=== PATIENT | male | born 1975 | race Hispanic/Latino ===

== ENCOUNTER 2020-06-21 10:41 | Emergency (ER) | payer BC ==
[~2020-06-21] VITALS: Ht 175.3 cm; Wt 113.4 kg
[2020-06-21] MEDS ORDERED: METRONIDAZOLE500 MG PO ×3 (11:27→11:31)
[2020-06-21] MEDS ORDERED: BACTRIM DS TAB1 EACH PO (11:29)
--- OUTSIDE RECORDS SUMMARY | 2020-06-21 11:54 | XMS REPORT | Continuity of Care Document ---
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 No Longer Active 02/17/2016 [facility] 200 ML Ciprofloxacin 2 MG/ML Injection Notes: Do not refrigerate No Longer Active 02/17/2016 [facility] D5LR 1,000 mL 1,000 mL, Rate: 30 ml/hr, Infuse over: 33.3 hr, Route: IV, Dosing Weight 100.455 kg, Total Volume: 1,000, Start date: 02/16/16 19:54:00 CDT, Stop date: 03/17/16 19:53:00 CDT No Longer Active 02/17/2016 [facility] Zofran Notes: (Same as: Zofran ) MEDICATION WASTE Product Size: 4 mg Product Wasted: ___ mg No Longer Active 02/17/2016 [facility] Morphine Notes: (Same as:MORPh ine Sulfate) No Longer Active 02/17/2016 [facility] Morphine Notes: (Same as:MORPh ine Sulfate) No Longer Active 02/17/2016 [facility] Allergies, Adverse Reactions, Alerts No Known Medication Allergies Immunizations No Data Provided for This Section Results Order Name Results Value Reference Range Date Interpretation Comments Source CHEM PANEL A/G Ratio 1.0 0.7 - 1.6 02/19/2016 [facility] CHEM PANEL AGAP 14.0 10.0 - 20.0 02/19/2016 [facility] CHEM PANEL B/C Ratio 13 6 - 25 02/19/2016 [facility] CHEM PANEL Globulin 3.4 2.0 - 4.0 02/19/2016 [facility] CHEM PANEL eGFR 108 02/19/2016 Result Comment: The eGFR is calculated using the CKD-EPI formula. In most young, healthy individuals the eGFR will be >90 mL/min/1.73m2. The eGFR declines with age. An eGFR of 60-89 may be normal in some populations, particularly the elderly, for whom the CKD-EPI formula has not been extensively validated. Use of the eGFR is not recommended in the following populations:

Individuals with unstable creatinine concentrations, including patients and those with serious co-morbid conditions.

Patients with extremes in muscle mass or diet.

The data above are obtained from the National Kidney Disease Education Program (NKDEP) which additionally recommends that when the eGFR is used in patients with extremes of body mass index for purposes of drug dosing, the eGFR should be multiplied by the estimated BMI. [facility] CHEM PANEL Bili Total 0.8 0.2 - 1.3 02/19/2016 [facility] CHEM PANEL AST 12 0 - 37 02/19/2016 [facility] CHEM PANEL Alk Phos 70 39 - 136 02/19/2016 [facility] CHEM PANEL Calcium Lvl 9.0 8.5 - 10.5 02/19/2016 [facility] CHEM PANEL Total Protein 6.9 6.4 - 8.4 02/19/2016 [facility] CHEM PANEL Albumin Lvl 3.5 3.5 - 5.0 02/19/2016 [facility] CHEM PANEL ALT 30 0 - 65 02/19/2016 [facility] CHEM PANEL Glucose Lvl 87 70 - 99 02/19/2016 [facility] CHEM PANEL Creatinine Lvl 0.83 0.50 - 1.40 02/19/2016 [facility] CHEM PANEL BUN 11 7 - 22 02/19/2016 [facility] CHEM PANEL Chloride Lvl 104 95 - 109 02/19/2016 [facility] CHEM PANEL Potassium Lvl 4.0 3.5 - 5.1 02/19/2016 [facility] CHEM PANEL Sodium Lvl 138 135 - 145 02/19/2016 [facility] CHEM PANEL CO2 24 24 - 32 02/19/2016 [facility] HEMATOLOGY RDW 13.1 11.5 - 14.5 02/19/2016 [facility] HEMATOLOGY MCV 95.8 80.0 - 94.0 02/19/2016 [facility] HEMATOLOGY MCH 31.8 27.0 - 31.0 02/19/2016 [facility] HEMATOLOGY MCHC 33.2 32.0 - 36.0 02/19/2016 [facility] HEMATOLOGY Hgb 15.0 14.0 - 18.0 02/19/2016 [facility] HEMATOLOGY Hct 45.1 42.0 - 54.0 02/19/2016 [facility] HEMATOLOGY WBC 11.0 3.7 - 10.4 02/19/2016 [facility] HEMATOLOGY RBC 4.71 4.70 - 6.10 02/19/2016 [facility] HEMATOLOGY MPV 9.5 7.4 - 10.4 02/19/2016 [facility] HEMATOLOGY Platelet 228 133 - 450 02/19/2016 [facility] HEMATOLOGY Basophils # 0.1 0.0 - 0.2 02/19/2016 [facility] HEMATOLOGY Eosinophils # 0.3 0.0 - 0.5 02/19/2016 [facility] HEMATOLOGY Lymphocytes # 2.1 1.0 - 5.5 02/19/2016 [facility] HEMATOLOGY Monocytes # 1.3 0.0 - 0.8 02/19/2016 [facility] HEMATOLOGY Lymphocytes 19.1 20.0 - 40.0 02/19/2016 [facility] HEMATOLOGY Monocytes 12.2 2.0 - 12.0 02/19/2016 [facility] HEMATOLOGY Segs 64.9 45.0 - 75.0 02/19/2016 [facility] HEMATOLOGY Segs-Bands # 7.1 1.5 - 8.1 02/19/2016 [facility] HEMATOLOGY Eosinophils 2.7 0.0 - 4.0 02/19/2016 [facility] HEMATOLOGY Basophils 1.1 0.0 - 1.0 02/19/2016 [facility] CHEM PANEL A/G Ratio 1.0 0.7 - 1.6 02/18/2016 [facility] CHEM PANEL Globulin 3.3 2.0 - 4.0 02/18/2016 [facility] CHEM PANEL AGAP 13.7 10.0 - 20.0 02/18/2016 [facility] CHEM PANEL B/C Ratio 11 6 - 25 02/18/2016 [facility] CHEM PANEL Alk Phos 69 39 - 136 02/18/2016 [facility] CHEM PANEL eGFR 105 02/18/2016 Result Comment: The eGFR is calculated using the CKD-EPI formula. In most young, healthy individuals the eGFR will be >90 mL/min/1.73m2. The eGFR declines with age. An eGFR of 60-89 may be normal in some populations, particularly the elderly, for whom the CKD-EPI formula has not been extensively validated. Use of the eGFR is not recommended in the following populations:

Individuals with unstable creatinine concentrations, including patients and those with serious co-morbid conditions.

Patients with extremes in muscle mass or diet.

The data above are obtained from the National Kidney Disease Education Program (NKDEP) which additionally recommends that when the eGFR is used in patients with extremes of body mass index for purposes of drug dosing, the eGFR should be multiplied by the estimated BMI. [facility] CHEM PANEL Bili Total 1.4 0.2 - 1.3 02/18/2016 [facility] CHEM PANEL ALT 28 0 - 65 02/18/2016 [facility] CHEM PANEL AST 13 0 - 37 02/18/2016 [facility] CHEM PANEL Total Protein 6.6 6.4 - 8.4 02/18/2016 [facility] CHEM PANEL Albumin Lvl 3.3 3.5 - 5.0 02/18/2016 [facility] CHEM PANEL Calcium Lvl 8.7 8.5 - 10.5 02/18/2016 [facility] CHEM PANEL Potassium Lvl 3.7 3.5 - 5.1 02/18/2016 [facility] CHEM PANEL CO2 25 24 - 32 02/18/2016 [facility] CHEM PANEL Chloride Lvl 103 95 - 109 02/18/2016 [facility] CHEM PANEL BUN 10 7 - 22 02/18/2016 [facility] CHEM PANEL Sodium Lvl 138 135 - 145 02/18/2016 [facility] CHEM PANEL Creatinine Lvl 0.89 0.50 - 1.40 02/18/2016 [facility] CHEM PANEL Glucose Lvl 95 70 - 99 02/18/2016 [facility] HEMATOLOGY Basophils 1.1 0.0 - 1.0 02/18/2016 [facility] HEMATOLOGY Segs-Bands # 8.9 1.5 - 8.1 02/18/2016 [facility] HEMATOLOGY Eosinophils 1.6 0.0 - 4.0 02/18/2016 [facility] HEMATOLOGY Lymphocytes # 2.2 1.0 - 5.5 02/18/2016 [facility] Eosinophils # 0.2 0.0 - 0.5 02/18/2016 [facility] Monocytes # 1.9 0.0 - 0.8 02/18/2016 [facility] Basophils # 0.2 0.0 - 0.2 02/18/2016 [facility] Lymphocytes 16.4 20.0 - 40.0 02/18/2016 [facility] Segs 66.6 45.0 - 75.0 02/18/2016 [facility] Monocytes 14.3 2.0 - 12.0 02/18/2016 [facility] MCHC 33.4 32.0 - 36.0 02/18/2016 [facility] Platelet 220 133 - 450 02/18/2016 [facility] RDW 13.1 11.5 - 14.5 02/18/2016 [facility] MPV 8.9 7.4 - 10.4 02/18/2016 [facility] WBC 13.4 3.7 - 10.4 02/18/2016 [facility] MCH 32.1 27.0 - 31.0 02/18/2016 [facility] MCV 96.2 80.0 - 94.0 02/18/2016 [facility] RBC 4.40 4.70 - 6.10 02/18/2016 [facility] Hct 42.3 42.0 - 54.0 02/18/2016 [facility] Hgb 14.1 14.0 - 18.0 02/18/2016 [facility] CHEM PANEL eGFR 96 02/17/2016 Result Comment: The eGFR is calculated using the CKD-EPI formula. In most young, healthy individuals the eGFR will be >90 mL/min/1.73m2. The eGFR declines with age. An eGFR of 60-89 may be normal in some populations, particularly the elderly, for whom the CKD-EPI formula has not been extensively validated. Use of the eGFR is not recommended in the following populations:

Individuals with unstable creatinine concentrations, including patients and those with serious co-morbid conditions.

Patients with extremes in muscle mass or diet.

The data above are obtained from the National Kidney Disease Education Program (NKDEP) which additionally recommends that when the eGFR is used in patients with extremes of body mass index for purposes of drug dosing, the eGFR should be multiplied by the estimated BMI. [facility] CHEM PANEL Calcium Lvl 8.8 8.5 - 10.5 02/17/2016 [facility] CHEM PANEL CO2 25 24 - 32 02/17/2016 [facility] CHEM PANEL Chloride Lvl 103 95 - 109 02/17/2016 [facility] CHEM PANEL Potassium Lvl 3.8 3.5 - 5.1 02/17/2016 [facility] CHEM PANEL Sodium Lvl 138 135 - 145 02/17/2016 [facility] CHEM PANEL Bili Total 1.2 0.2 - 1.3 02/17/2016 [facility] CHEM PANEL Alk Phos 71 39 - 136 02/17/2016 [facility] CHEM PANEL Creatinine Lvl 0.97 0.50 - 1.40 02/17/2016 [facility] CHEM PANEL BUN 10 7 - 22 02/17/2016 [facility] CHEM PANEL Glucose Lvl 101 70 - 99 02/17/2016 [facility] CHEM PANEL Total Protein 7.2 6.4 - 8.4 02/17/2016 [facility] CHEM PANEL AST 11 0 - 37 02/17/2016 [facility] CHEM PANEL ALT 34 0 - 65 02/17/2016 [facility] CHEM PANEL Albumin Lvl 3.4 3.5 - 5.0 02/17/2016 [facility] CHEM PANEL A/G Ratio 0.9 0.7 - 1.6 02/17/2016 [facility] CHEM PANEL Globulin 3.8 2.0 - 4.0 02/17/2016 [facility] CHEM PANEL B/C Ratio 10 6 - 25 02/17/2016 [facility] CHEM PANEL AGAP 13.8 10.0 - 20.0 02/17/2016 [facility] HEMATOLOGY RDW 13.2 11.5 - 14.5 02/17/2016 [facility] HEMATOLOGY Platelet 229 133 - 450 02/17/2016 [facility] HEMATOLOGY MCH 31.6 27.0 - 31.0 02/17/2016 [facility] HEMATOLOGY RBC 4.67 4.70 - 6.10 02/17/2016 [facility] HEMATOLOGY Hgb 14.8 14.0 - 18.0 02/17/2016 [facility] HEMATOLOGY Hct 44.3 42.0 - 54.0 02/17/2016 [facility] HEMATOLOGY MCV 94.8 80.0 - 94.0 02/17/2016 [facility] HEMATOLOGY WBC 13.4 3.7 - 10.4 02/17/2016 [facility] HEMATOLOGY MCHC 33.4 32.0 - 36.0 02/17/2016 [facility] HEMATOLOGY MPV 8.8 7.4 - 10.4 02/17/2016 [facility] HEMATOLOGY Eosinophils # 0.2 0.0 - 0.5 02/17/2016 [facility] HEMATOLOGY Segs-Bands # 9.4 1.5 - 8.1 02/17/2016 [facility] HEMATOLOGY Lymphocytes # 1.9 1.0 - 5.5 02/17/2016 [facility] HEMATOLOGY Monocytes 13.1 2.0 - 12.0 02/17/2016 [facility] HEMATOLOGY Basophils 0.8 0.0 - 1.0 02/17/2016 [facility] HEMATOLOGY Eosinophils 1.4 0.0 - 4.0 02/17/2016 [facility] HEMATOLOGY Lymphocytes 14.3 20.0 - 40.0 02/17/2016 [facility] HEMATOLOGY Segs 70.4 45.0 - 75.0 02/17/2016 [facility] HEMATOLOGY Monocytes # 1.8 0.0 - 0.8 02/17/2016 [facility] HEMATOLOGY Basophils # 0.1 0.0 - 0.2 02/17/2016 [facility] Pathology Reports No Data Provided for This Section Diagnostic Reports No Data Provided for This Section Consultation Notes No Data Provided for This Section Discharge Summaries No Data Provided for This Section History and Physicals No Data Provided for This Section Vital Signs Vital Sign Value Date Comments Source Heart Rate 76 02/19/2016 [facility] Systolic (mm Hg) 121 02/19/2016 [facility] Diastolic (mm Hg) 78 02/19/2016 [facility] Respitory Rate 18 02/19/2016 [facility] Temperature Oral (F) 98.0 F 02/19/2016 [facility] Respitory Rate 18 02/19/2016 [facility] Temperature Oral (F) 98.3 F 02/19/2016 [facility] Heart Rate 83 02/19/2016 [facility] Systolic (mm Hg) 108 02/19/2016 [facility] Diastolic (mm Hg) 73 02/19/2016 [facility] Systolic (mm Hg) 116 02/19/2016 [facility] Diastolic (mm Hg) 79 02/19/2016 [facility] Respitory Rate 18 02/19/2016 [facility] Temperature Oral (F) 98.1 F 02/19/2016 [facility] Heart Rate 87 02/19/2016 [facility] Height 175.26 cm 02/17/2016 [facility] BMI Calculated 32.7 02/16/2016 [facility] Weight 100.455 02/16/2016 [facility] Height 175.26 cm 02/16/2016 [facility] BMI Calculated 32.7 02/16/2016 [facility] Weight 100.455 02/16/2016 [facility] Height 175.26 cm 02/16/2016 [facility] Encounters Location Location Details Encounter Type Encounter Number Reason For Visit Attending Provider ADM Date DC Date Status Source [facility] Inpatient [id number] Huy Stewart 02/17/2016 02/19/2016 [facility] Procedures No Data Provided for This Section Assessment and Plan No Data Provided for This Section Plan of Care No Data Provided for This Section Social History Social History Date Source Social History TypeResponse Alcohol Current, Type Beer, Wine, Liquor. Frequency: 1-2 times per month. Smoking Status Current every day smoker; Type: Cigarettes; Tobacco use per day: 0.5; Exposure to Tobacco Smoke None; Cigarette Smoking Last 365 Days Yes; Reg Smoking Cessation Counseling No 02/16/2016 [facility] Family History No Data Provided for This Section Advance Directives No Data Provided for This Section Functional Status No Data Provided for This Section
--- OUTSIDE RECORDS SUMMARY | 2020-06-21 11:54 | XMS REPORT | Continuity of Care Document ---
Author Author [facility] t Organization [facility] Address [facility] Jey Abdi [address] [place] [address] Phone Unavailable Care Team Providers Care Aboriginal Education Teacher Name Role Phone PatStacy voss Attphys Pat Stacy Huy Admphys Payers Payer Name Policy Type Policy Number Effective Date Expiration Date S ource Problems Condition Name Condition Details Condition Category Status Onset Date Resolution Date Last Treatment Date Treating Clinician Comments Source PERFORATED DIVERTICULITIS PERF ORATED DIVERTICULITIS Active 02/16/2016 [facility] Active 2016-02-16 00:00:00 2016-06-22 15:28:00 Tobin Khanna DVRTCLOS OF INTEST, PART UNSP, 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 No Known Allergies DA Active U 2015-06-14 00:00:[address] [facility] Social History Social Habit Start Date Stop Date Quantity Comments Source Social History 2016-02-16 23:05:34 2016-02-16 23:05:34 Tobin Khanna Medications Ordered Medication Name Filled Medication Name Start Date Stop Da te Current Medication? Ordering Clinician Indication Dosage Frequency Signature (SIG) Comments Components Source Metronidazole 500 MG Oral Tablet [Flagyl] 2016-02-19 22:40:00 Yes 500 mg = 1 tab, PO, Q8H, X 10 day, # 30 tab, 0 Refill(s) Tobin Khanna ciprofloxacin 500 mg oral tablet 2016-02-19 22:40:00 Yes 500 mg = 1 tab, PO, Q12H, X 10 day, # 20 tab, 0 Refill(s) Tobin Khanna Flagyl 2016-02-17 01:00:00 No Notes: (Same as: Flagyl) Avoid alcohol. Tobin Khanna 200 ML Ciprofloxacin 2 MG/ML Injection 2016-02-17 01:00:00 No Notes: Do not refrigerate Tobin Khanna D5LR 1,000 mL 2016-02-17 00:54:00 No 1,000 mL, Rate: 30 ml/hr, Infuse over: 33.3 hr, Route: IV, Dosing Weight 100.455 kg, Total Volume: 1,000, Start date: 02/16/16 19:54:00 CDT, Stop date: 03/17/16 19:53:00 CDT Tobin Khanna Zofran 2016-02-17 00:52:00 No Notes: (Same as: Zofran) MEDICATION WASTE Product Size: 4 mg Product Wasted: ___ mg Tobin Khanna Morphine 2016-02-17 00:51:00 No Not es: (Same as:MORPhine Sulfate) Tobin Khanna Morphine 2016-02-17 00:48:00 No Not es: (Same as:MORPhine Sulfate) Tobin Khanna Vital Signs Vital Name Observation Time Observation Value Comments Source Heart Rate 2016-02-19 20:44:00 [facility] Systolic (mm Hg) 2016-02-19 20:44:00 [facility] Diastolic (mm Hg) 2016-02-19 20:44:00 [facility] Respitory Rate 2016-02-19 20:44:00 [facility] Temperature Oral (F) 2016-02-19 20:44:00 98.0 F [facility] Respitory Rate 2016-02-19 16:18:00 [facility] Temperature Oral (F) 2016-02-19 16:18:00 98.3 F [facility] Heart Rate 2016-02-19 16:18:00 [facility] Systolic (mm Hg) 2016-02-19 16:18:00 [facility] Diastolic (mm Hg) 2016-02-19 16:18:00 [facility] Systolic (mm Hg) 2016-02-19 13:41:00 [facility] Diastolic (mm Hg) 2016-02-19 13:41:00 [facility] Respitory Rate 2016-02-19 13:41:00 [facility] Temperature Oral (F) 2016-02-19 13:41:00 98.1 F [facility] Heart Rate 2016-02-19 13:41:00 [facility] Height 2016-02-17 04:37:00 175.26 cm [facility] BMI Calculated 2016-02-16 23:37:00 [facility] Weight 2016-02-16 23:37:00 [facility] Height 2016-02-16 23:37:00 175.26 cm [facility] BMI Calculated 2016-02-16 23:02:00 [facility] Weight 2016-02-16 23:02:00 [facility] Height 2016-02-16 23:02:00 175.26 cm [facility] Procedures This patient has no known procedures. Encounters Start Date/Time End Date/Time [facility] ID Source 2016-02-16 19:48:00 2016-02-19 18:04:00 Outpatient Huy Jaimes [facility] [id number] Results Test Description Test Time Test Comments Results Result Comments Source - XR CHEST 1 V 2020-05-12 22:29:00 Name: LUCRECIA ALATORREBABAK [facility] : 1975 Age/S:44 /M [address] [facility] Unit#:[id number] Loc: [place] [address] Phys: Brennan Jade MD Dis Date: PHONE #: [phone] Status: REG ER FAX #: [phone] Exam Date: 05/12/2020 Reason: chest pain EXAMS: CPT CODE: [id number] XR CHEST 1 V 27925 Exam: AP chest Location: H 12 History: chest pain Comparison: 11/19/2019 Findings: The lungs are clear. No infiltrate or effusion is seen. The pulmonary vasculature is normal. The heart size is normal. The mediastinal silhouette is unremarkable. The bony thorax is intact. Impression: No acute disease. at 2229 Reported and signed by: Ritchie Palma M.D. CC: Brennan Jade MD Technologist: CECILY MONGE RT(R),CT Trnscrpt Data: 05/12/2020 (2228) [email or web address] Orig Print D/T: S: 05/12/2020 (2231) PAGE 1 Signed Report B-TYPE NATRIURETIC PEPTIDE 2020-05-12 22:01:00 Test Item B-TYPE NATRIURETIC PEPTIDE (test code = BNP) < 5.0 pg/mL 0-100 N COMPREHENSIVE METABOLIC [id number] 21:59:00* Test Item Value Reference Range Interpretation Comments SODIUM (test code = NA) 141 mmol/L 136-145 N POTASSIUM (test code = K) 3.5 mmol/L 3.5-5.1 N CHLORIDE (test code = CL) 105 mmol/L 101-109 N CARBON DIOXIDE (test code = CO2) 29.2 mmol/L 21-32 N ANION GAP (test code = GAP) 10 mmol/L 10-20 N GLUCOSE (test code = GLU) 128 mg/dL 74-106 H BLOOD UREA NITROGEN (test code = BUN) 12 mg/dL 3-21 N CREATININE (test code = CREAT) 0.95 mg/dL 0.55-1.3 N BUN/CREATININE RATIO (test code = BUN/CREA) 12.6 10-20 N TOTAL PROTEIN (test code = PROT) 7.3 g/dL 6.5-8.4 N ALBUMIN (test code = ALB) 3.9 g/dL 3.4-4.8 N GLOBULIN (test code = GLOB) 3.4 G/DL 1-10 N ALBUMIN/GLOBULIN RATIO (test code = A/G) 1.15 RATIO 0.75-1.50 N CALCIUM (test code = CA) 8.9 mg/dL 8.4-10.2 N BILIRUBIN TOTAL (test code = BILT) 0.40 mg/dL 0.0-1.0 N SGOT/AST (test code = AST) 26 U/L 6-32 N SGPT/ALT (test code = ALT) 68 U/L 12-78 N N ote: Change in REFERENCE RANGE due to new reagent method. ALKALINE PHOSPHATASE TOTAL (test code = ALKP) 55 U/L 38-126 N [id number] 21:59:00* Test Item Value Reference Range Interpretation Comments TROPONIN-I (test code = TROPI) <0.015 ng/mL 0.00-0.056 N COMPREHENSIVE METABOLIC [id number] 21:53:00* Test Item Value Reference Range Interpretation Comments SODIUM (test code = NA) 141 mmol/L 136-145 N POTASSIUM (test code = K) 3.5 mmol/L 3.5-5.1 N CHLORIDE (test code = CL) 105 mmol/L 101-109 N CARBON DIOXIDE (test code = CO2) 29.2 mmol/L 21-32 N ANION GAP (test code = GAP) 10 mmol/L 10-20 N GLUCOSE (test code = GLU) 128 mg/dL 74-106 H BLOOD UREA NITROGEN (test code = BUN) 12 mg/dL 3-21 N CREATININE (test code = CREAT) 0.95 mg/dL 0.55-1.3 N BUN/CREATININE RATIO (test code = BUN/CREA) 12.6 10-20 N TOTAL PROTEIN (test code = PROT) gram/dL 6.4-8.2 ALBUMIN (test code = ALB) g/dL 3.4-5.0 GLOBULIN (test code = GLOB) g/dL 2.7-4.2 ALBUMIN/GLOBULIN RATIO (test code = A/G) 0.75-1.50 CALCIUM (test code = CA) 8.9 mg/dL 8.4-10.2 N BILIRUBIN TOTAL (test code = BILT) mg/dL 0.2-1.2 SGOT/AST (test code = AST) IUnit/L 15-37 SGPT/ALT (test code = ALT) U/L 10-69 ALKALINE PHOSPHATASE TOTAL (test code = ALKP) IUnit/L 45-117 [id number] 21:53:00* Test Item Value Reference Range Interpretation Comments TROPONIN-I (test code = TROPI) ng/mL 0-0.045 CBC W/AUTO [id number] 21:42:00* Test Item Value Reference Range Interpretation Comments WHITE BLOOD CELL (test code = WBC) 10.3 K/mm3 4.5-12.5 N RED BLOOD CELL (test code = RBC) 4.71 mill/mm3 4.0-5.8 N HEMOGLOBIN (test code = HGB) 15.4 gram/dL 13.0-17.5 N HEMATOCRIT (test code = HCT) 45.1 % 42.0-52.0 N MEAN CELL VOLUME (test code = MCV) 95.8 fL 80-98 N MEAN CELL HGB (test code = MCH) 32.7 picogram 27.0-33.0 N MEAN CELL HGB CONCETRATION (test code = MCHC) 34.1 gram/dL 33.0-36. 0 N RED CELL DISTRIBUTION WIDTH (test code = RDW) 12.9 % 11.6-16. 2 N RED CELL DISTRIBUTION WIDTH SD (test code = RDW-SD) 46.4 fL 37 .0-51.0 N PLATELET COUNT (test code = PLT) 218 K/mm3 150-450 N MEAN PLATELET VOLUME (test code = MPV) 10.1 fL 6.7-11.0 N NEUTROPHIL % (test code = NT%) 58.0 % 39.0-69.0 N LYMPHOCYTE % (test code = LY%) 28.8 % 25.0-55.0 N MONOCYTE % (test code = MO%) 9.1 % 0.0-10.0 N EOSINOPHIL % (test code = EO%) 3.3 % 0.0-5.0 N BASOPHIL % (test code = BA%) 0.5 % 0.0-1.0 N NEUTROPHIL # (test code = NT#) 5.97 K/mm3 1.8-7.7 N LYMPHOCYTE # (test code = LY#) 2.97 K/mm3 1.0-5.0 N MONOCYTE # (test code = MO#) 0.94 K/mm3 0-0.8 H EOSINOPHIL # (test code = EO#) 0.34 K/mm3 0.0-0.5 N BASOPHIL # (test code = BA#) 0.05 K/mm3 0.0-0.2 N MANUAL DIFF REQUIRED (test code = MDIFF) NO - XR CHEST 1 [id number] 19:41:00 Name: BABAK JANSEN [facility] : 1975 Age/S:43 /M [address] [facility] Unit#:[id number] Loc: [place] [address] Phys: Shayan Fong MD Dis Date: PHONE #: [phone] Status: REG ER FAX #: [phone] Exam Date: 11/19/2019 Reason: CHEST PAIN EXAMS: CPT CODE: [id number] XR CHEST 1 V [id number] EXAM: Chest X-ray, 1 view; CLINICAL HISTORY: Chest pain; FINDINGS: The lungs are clear, no infiltrates, no edema; no effusions; no pneumothorax; normal cardiomediastinal silhouette. IMPRESSION: Normal chest x-ray. Location code: [facility] at 194 Reported and signed by: Parth Madrid M.D. CC: Shayan Fong MD Technologist: CHELSIE ADRIAN RT(R),RDMS,CT Trnscrpt Data: 11/19/2019 (1940) [email or web address] Orig Print D/T: S: 11/19/2019 (1944) PAGE 1 Signed Report BASIC METABOLIC [id number] 19:21:00* Test Item Value Reference Range Interpretation Comments SODIUM (test code = NA) 140 mmol/L 136-145 N POTASSIUM (test code = K) 3.8 mmol/L 3.5-5.1 N CHLORIDE (test code = CL) 104 mmol/L 101-109 N CARBON DIOXIDE (test code = CO2) 27.4 mmol/L 21-32 N ANION GAP (test code = GAP) 12 mmol/L 10-20 N GLUCOSE (test code = GLU) 123 mg/dL 74-106 H BLOOD UREA NITROGEN (test code = BUN) 12 mg/dL 3-21 N GLOMERULAR FILTRATION RATE (test code = GFR) > 60 mL/min >=60 Estimated GFR by using Modified MDRD formula.Chronic kidney disease is defined as either kidney damageor GFR <60 mL/min/1.73 m2 for >3 months. CREATININE (test code = CREAT) 0.99 mg/dL 0.55-1.3 N BUN/CREATININE RATIO (test code = BUN/CREA) 12.1 10-20 N CALCIUM (test code = CA) 8.9 mg/dL 8.4-10.2 N [id number] 19:21:00* Test Item Value Reference Range Interpretation Comments TROPONIN-I (test code = TROPI) <0.015 ng/mL 0.00-0.056 N BASIC METABOLIC [id number] 19:12:00* Test Item Value Reference Range Interpretation Comments SODIUM (test code = NA) 140 mmol/L 136-145 N POTASSIUM (test code = K) 3.8 mmol/L 3.5-5.1 N CHLORIDE (test code = CL) 104 mmol/L 101-109 N CARBON DIOXIDE (test code = CO2) 27.4 mmol/L 21-32 N ANION GAP (test code = GAP) 12 mmol/L 10-20 N GLUCOSE (test code = GLU) 123 mg/dL 74-106 H BLOOD UREA NITROGEN (test code = BUN) 12 mg/dL 3-21 N GLOMERULAR FILTRATION RATE (test code = GFR) > 60 mL/min >=60 Estimated GFR by using Modified MDRD formula.Chronic kidney disease is defined as either kidney damageor GFR <60 mL/min/1.73 m2 for >3 months. CREATININE (test code = CREAT) 0.99 mg/dL 0.55-1.3 N BUN/CREATININE RATIO (test code = BUN/CREA) 12.1 10-20 N CALCIUM (test code = CA) 8.9 mg/dL 8.4-10.2 N [id number] 19:12:00* Test Item Value Reference Range Interpretation Comments TROPONIN-I (test code = TROPI) ng/mL 0-0.045 CBC W/O [id number] 19:06:00* Test Item Value Reference Range Interpretation Comments WHITE BLOOD CELL (test code = WBC) 10.6 K/mm3 4.5-12.5 N RED BLOOD CELL (test code = RBC) 4.70 mill/mm3 4.0-5.8 N HEMOGLOBIN (test code = HGB) 15.2 gram/dL 13.0-17.5 N HEMATOCRIT (test code = HCT) 44.9 % 42.0-52.0 N MEAN CELL VOLUME (test code = MCV) 95.5 fL 80-98 N MEAN CELL HGB (test code = MCH) 32.3 picogram 27.0-33.0 N MEAN CELL HGB CONCETRATION (test code = MCHC) 33.9 gram/dL 33.0-36. 0 N RED CELL DISTRIBUTION WIDTH (test code = RDW) 12.9 % 11.6-16. 2 N RED CELL DISTRIBUTION WIDTH SD (test code = RDW-SD) 46.6 fL 37 .0-51.0 N PLATELET COUNT (test code = PLT) 222 K/mm3 150-450 N MEAN PLATELET VOLUME (test code = MPV) 10.4 fL 6.7-11.0 N CHEM [id number] 09:36:001.0[facility] [id number] 09:36:00 14.0[facility]ann[facility] [id number] 09:36:0013[facility]ann[facility] PANEL 2016-02-19 09:36:003.4[facility] [id number] 09:36:02918Oivenudg HermannCHEM NLQZE3111-09-03 09:36:000.8[facility] XVNHS1307-33-65 09:36:0012[facility] JZHOC6530-78-60 09:36:0070[facility] NGXFV6277-48-65 09:36:009.0[facility] RGFGN9892-84-39 09:36:006.9 [facility] LPSUN7706-22-85 09:36:003.5[facility]ann[facility] PANEL 2016-02-19 09:36:0030[facility] CNFWF0843-49-94 09:36:0087[facility] QKHCE6196-83-38 09:36:000.83[facility] SDTJJ5524-24-61 09:36:0011[facility] KYECM9308-14-34 09:36:58949Rjduksqf HermannCHEM FPUXR1805-71-74 09:36:004.0[facility] MTEBP3403-28-08 09:36:31495 [facility] SEMAB0506-62-73 09:36:0024[facility]annHEMATOLOGY 2016-02-19 09:36:0013.1[facility] DusthfoYGDLAULGEN3165-55-21 09:36:0095.8[facility] ObpnngzXBELVJYFZX3129-39-77 09:36:00* Test Item Value Reference Range Interpretation Comments MCH (test code = MCH) 31.8 pg 27.0-31.0 [facility] NhmsghrJZHQLTDMLC9265-35-34 09:36:0033.2[facility]annHEMATOLOGY 2016-02-19 09:36:0015.0[facility] OhfvgijKQDNORJYRI8000-79-57 09:36:0045.1[facility] VnpzobaAFCDHWSWMP9406-41-66 09:36:0011.0[facility] HvujpfiOSEAONPPPQ8252-97-60 09:36:004.71[facility] YishpwsDOQLPVRUMJ0179-15-40 09:36:009.5[facility] FLUDRLDODK9820-10-65 09:36:07463Dsutjaqh SgerjueVETQEZXFEY0124-47-78 09:36:000.1 [facility] MuwahftJJFCQQZKNT3825-25-97 09:36:000.3[facility]annHEMATOLOGY 2016-02-19 09:36:002.1[facility] BlzbuhqLUWOOMBVPX5680-53-93 09:36:001.3[facility] MrbuktgFDCWMHXIUF0107-95-73 09:36:0019.1[facility] TyozpsvMZMTHOUGOZ4859-86-65 09:36:0012.2[facility] FvagrbsCNDMUYTILP3937-49-56 09:36:0064.9[facility] BEQPSWZOGZ9445-57-25 09:36:007.1[facility] BfdsumtXDSKWQHWNI4127-50-70 09:36:002.7 [facility] FsjeifhWVJBJZFDRI6013-07-19 09:36:001.1[facility]annCHEM PANEL 2016-02-18 09:30:001.0[facility] BSWXU0604-61-58 09:30:003.3[facility] SVQSW2577-90-88 09:30:0013.7[facility] PGYUQ9287-38-74 09:30:0011[facility] YKUYD0590-18-92 09:30:0069[facility]annCHE[facility] VFWHS0759-37-53 09:30:51830Qylhhsdt HermannCHEM VOWWR6924-57-13 09:30:001.4 [facility] SXNEC6199-73-85 09:30:0028[facility]annCHE[facility] PANEL 2016-02-18 09:30:0013[facility]annCHE[facility] ZHHEQ7105-32-18 09:30:006.6[facility] AMPRJ6157-63-33 09:30:003.3[facility] PNNUV9587-10-14 09:30:008.7[facility] ZYTWF0786-00-37 09:30:003.7[facility] MJEAR6870-48-67 09:30:0025[facility] MZGEQ4693-77-65 09:30:85306 [facility] FNNGL7410-28-70 09:30:0010[facility]annCHE[facility] PANEL 2016-02-18 09:30:91320Ejymqwmx HermannCHEM BNQFU8774-19-47 09:30:000.89[facility] HAOGG3064-79-72 09:30:0095[facility] JlsqksnIIFYTNMGYJ2536-20-09 09:30:001.1[facility] EvxzvnfFRADEKVMGA4699-02-64 09:30:008.9[facility] SKDKAZPCTW8207-46-86 09:30:001.6[facility] IrxsdlcYREZPVRBYI5097-47-10 09:30:002.2 [facility] TqyhgtrUXQYMPDDCV8366-72-61 09:30:000.2[facility]annHEMATOLOGY 2016-02-18 09:30:001.9[facility] GsyfrruOTVIYGELXG9856-81-86 09:30:000.2[facility] JxusdxfJEEQCTNVVM0617-41-07 09:30:0016.4[facility] KfvpwmaMRYHWBYMFB3346-05-81 09:30:0066.6[facility] TbmpbzqQLVTDSNQBE2125-13-24 09:30:0014.3[facility] SLWEHMCYSI7002-82-54 09:30:0033.4[facility] BqgmzzlCVBFTEIUWU9908-68-85 09:30:00 220[facility] MuwhrvhLDFNVKUEIS7866-61-12 09:30:0013.1[facility]annHEMATOLOGY 2016-02-18 09:30:008.9[facility] CuiotlqHMMNJUPUYO4970-89-87 09:30:0013.4[facility] ZykklvnONUJFKJDMK4451-54-29 09:30:00* Test Item Value Reference Range Interpretation Comments MCH (test code = MCH) 32.1 pg 27.0-31.0 [facility] YahvqbxRCZFZFAITP6982-59-72 09:30:0096.2[facility]annHEMATOLOGY 2016-02-18 09:30:004.40[facility] WkeuckaKMELKTARKY9431-74-85 09:30:0042.3[facility] JijcdtsECGXPQMXPH9930-16-79 09:30:0014.1[facility] KFVWB0935-98-40 11:17:0096[facility] YMMZH1541-89-87 11:17:008.8[facility]CHE[facility] OUYUN8751-91-87 11:17:0025[facility] DLKJV9550-35-70 11:17:40302 [facility] XGENF3929-42-43 11:17:003.8[facility]annCHEM PANEL 2016-02-17 11:17:06650Zzjmsrkt HermannCHEM DPOQV7514-71-99 11:17:001.2[facility] OIQEF1403-81-73 11:17:0071[facility] AXXLF0111-17-94 11:17:000.97[facility]CHE[facility] AOCAT6744-52-07 11:17:0010[facility]annCHE[facility] UVONS5720-92-33 11:17:93944Pfzrzfum HermannCHEM OJRTJ8213-53-38 11:17:007.2 [facility]CHE[facility] WPPOT3461-95-44 11:17:0011[facility]annCHE[facility] PANEL 2016-02-17 11:17:0034[facility]annCHE[facility] PYGPP3141-87-80 11:17:003.4[facility]annCHE[facility] ALVFN8372-16-36 11:17:000.9[facility]annCHE[facility] EXPST1377-88-89 11:17:003.8[facility]annCHE[facility] EEGHS9616-10-25 11:17:0010[facility]annCHE[facility] BBOHH8359-53-16 11:17:0013.8[facility] XhgcbvnKIMTFIXCNR6434-77-98 11:17:0013.2 [facility] VyzlyluAKJTCHGYOR8651-79-80 11:17:19360Dmhsjnvm HermannHEMATOLOGY 2016-02-17 11:17:00* Test Item Value Reference Range Interpretation Comments MCH (test code = MCH) 31.6 pg 27.0-31.0 [facility] YeezgdyDVUVXFLKFA1913-53-21 11:17:004.67[facility]annHEMATOLOGY 2016-02-17 11:17:0014.8[facility] RvltayhWKBDAXPBDB4268-80-95 11:17:0044.3[facility] VbtwjziQQLXHVPWCR6899-73-68 11:17:0094.8[facility] DwgldhnQUIRAIIPEJ7084-60-33 11:17:0013.4[facility] CzsmunvRSHUTGFSKP6027-81-96 11:17:0033.4[facility] YAOVPBNQNT6291-19-67 11:17:008.8[facility] FncspnwOYQYUXFNZB0500-55-47 11:17:000.2 [facility] QaafscjXEHXCRXDFL7896-78-80 11:17:009.4[facility]annHEMATOLOGY 2016-02-17 11:17:001.9[facility] DcadhdnOZGRGAIJSY7653-58-17 11:17:0013.1[facility] WoslakpNECLGKNZXC9813-85-66 11:17:000.8[facility] AwwbvdePUDWZKXZOD2471-27-75 11:17:001.4[facility] NtnbkpfYYMSMDNNCG5098-00-30 11:17:0014.3[facility] VBWHZOOLOV3941-74-51 11:17:0070.4[facility] PtitjmuZJQPLWOILP4723-78-93 11:17:00 1.8[facility] SfhbyhoZXENSUQIJJ7340-83-05 11:17:000.1[facility]
--- NOTE | 2020-06-21 12:01 | Emergency Department Note ---
History of Present Illnes History of Present Illness Chief Complaint: Abdominal Complaints History of Present Illness This is a 44 year old male with two days of lower midline dull abdominal pain in suprapubic area. No N/V/D. No constipation. No melena. No hematachezia. Little to no pain at rest. Pain with movement where uses core muscles such as sitting up from sitting position and sneezing, and straining during BM. Has history of diverticulitis and states that prior episodes were not the typical left lower quad pain and were more midline, however he states prior episodes were not like current pain and were not related to movement. No fever. 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 Woke up the next morning with symptoms.); Denies recent illness, Denies recent surgery, Denies recent immobilization, Denies recent travel, Denies trauma/injury Relieving factors: rest Exacerbating factors: movement Associated symptoms: Denies chest pain, Denies cough, Denies diaphoresis, Denies fever/chills, Denies loss of appetite, Denies malaise, Denies nausea/vomiting, Denies shortness of breath, Denies weakness Treatments prior to arrival: NSAID Past Medical/Family History Physician Review I have reviewed the patient's past medical and family history. Any updates have been documented here. Past Medical History Recent Fever: No Clinical Suspicion of Infectio: No New/Unexplained Change in Ment: No Other Medical History: diverticulosis Past Surgical History: None Social History Smoking Cessation: Current every day smoker Counseling Performed: No Alcohol Use: Occasional Any Illegal Drug Use: No Physically hurt or threatened: No Other Any Pre-Existing Lines (PICC,: No Review of Systems Review of Systems Constitutional: Reports no symptoms EENTM: Reports no symptoms Cardiovascular: Reports no symptoms Respiratory: Denies cough, Denies dyspnea Gastrointestinal: Reports as per HPI, Reports abdominal pain Genitourinary: Reports other (No Hx of kidney stones); Denies discharge, Denies dysuria, Denies frequency, Denies hematuria, Denies pain Musculoskeletal: Denies back pain, Denies muscle pain Integumentary: Denies rash Neurological: Denies headache Psychological: Reports no symptoms Hematological/Lymphatic: Denies easy bleeding, Denies easy bruising Physical Exam Related Data Allergies: Coded Allergies: No Known Allergies (Unverified , 05/04/16) Triage Vital Signs Vital Signs Date Time Temp Pulse Resp B/P (MAP) Pulse Ox O2 Delivery O2 Flow Rate FiO2 06/21/20 11:03 98.6 104 17 139/85 100 Room Air Physical Exam CONSTITUTIONAL Constitutional: Present well-developed, Present well-nourished HENT HENT: Present normocephalic, Present atraumatic, Present oropharynx clear/moist, Present nose normal HENT L/R: Present left ext ear normal, Present right ext ear normal EYES NECK Neck: Present ROM normal PULMONARY Pulmonary: Present effort normal, Present breath sounds normal CARDIOVASCULAR Cardiovascular: Present regular rhythm, Present heart sounds normal, Present capillary refill normal, Present normal rate GASTROINTESTINAL Abdominal: Present soft, Present nontender, Present bowel sounds normal, Present other (No psoas, No illiac); Absent distension, Absent tender, Absent guarding, Absent mass, Absent rebound, Absent left CVA tenderness, Absent right CVA tenderness GENITOURINARY SKIN Skin: Present warm, Present dry; Absent rash MUSCULOSKELETAL Musculoskeletal: Present ROM normal NEUROLOGICAL Neurological: Present alert, Present oriented x 3 PSYCHOLOGICAL Psychological: Present mood/affect normal, Present thought content normal Results Laboratory Laboratory comments UA: WNL Procedures Smoking Cessation Patient acknowledges need for: Yes Additional comments Performed 4 min. Patient agrees he needs to quit. Educated patient on the harms of smoking and instructed to follow up with PCP as resource. Assessment & Plan Medical Decision Making MDM Differential includes, but is not limited to Kidney stone, diverticulitis, appendicitis, muscle strain, constipation, UTI, pylonephritis. Spoke with patient about UA: With UA normal do not expect UTI/pylo and with no hematuria do not expect kidney stone. Offered patient blood work and CT to rule out above and patient declined. Given hx and PE expect cause is muscle strain, but will treat with antibiotics for diverticulitis given patient's past history. Gave strict return precautions and patient to have prompt followup with his GI. Assessment & Plan Final Impression: (1) Abdominal pain (2) Diverticulitis (3) Tobacco dependence Depart Disposition: HOME, SELF-CARE Last Vital Signs Date Time Temp Pulse Resp B/P (MAP) Pulse Ox O2 Delivery O2 Flow Rate FiO2 06/21/20 11:03 98.6 104 17 139/85 100 Room Air Home Meds Active Scripts Metronidazole (METRONIDAZOLE) 500 Mg Tablet, 500 MG PO TID for 10 Days, #90 TAB Prov:SEBASTIEN LLANOS MD 06/21/20 Sulfamethoxazole/Trimethoprim (BACTRIM DS TABLET) 1 Each Tablet, 1 TAB PO BID for 10 Days, #20 TAB Prov:SEBASTIEN LLANOS MD 06/21/20 Discontinued Scripts Metronidazole (METRONIDAZOLE) 500 Mg Tablet, 500 MG PO BID for 10 Days, #20 TAB Prov:SEBASTIEN LLANOS MD 06/21/20 SEBASTIEN LLANOS MD Jun 21, 2020 12:01
== END 2020-06-21 11:45 | disposition home or self-care (01) ==
LOC: FSED 11:30
DX: R10.30 Lower abdominal pain, unspecified (principal); K57.92 Diverticulitis of intestine, part unspecified, without perforation or abscess without bleeding; F17.210 Nicotine dependence, cigarettes, uncomplicated
CPT/HCPCS: 80048; 80076; 81003; 85025; 99283

== ENCOUNTER 2023-04-10 11:16 | Emergency (ER) | payer BC ==
[~2023-04-10] VITALS: Ht 175.3 cm; Wt 113.4 kg
[2023-04-10 11:16] VITALS: O2SAT 100
[~2023-04-10 11:16] MED LIST: BACTRIM DS TAB1 EACH PO; METRONIDAZOLE500 MG PO
[2023-04-10] MEDS ORDERED: IBUPROFEN 600 MG TAB PO STA (11:27)
[2023-04-10 11:46] LABS: BASOPHILS % 0.4 % (0.0-1.0); EOSINOPHILS # (AUTO) 0.3 (0.0-0.4); EOSINOPHILS % 2.4 % (0.0-6.0); HEMATOCRIT 48.3 % (38.2-49.6); HEMOGLOBIN 16.6 g/dL (14.0-18.0); LYMPHOCYTES # (AUTO) 3.2 (1.0-3.2); LYMPHOCYTES % 28.6 % (18.0-39.1); MEAN CORPUSCULAR HEMOGLOBIN 32.6 pg (28-32); MEAN CORPUSCULAR HGB CONC 34.4 g/dL (31-35); MEAN CORPUSCULAR VOLUME 94.9 fL (81-99); MONOCYTES # (AUTO) 0.9 (0.2-0.8); MONOCYTES % 7.7 % (4.4-11.3); NEUTROPHILS # (AUTO) 6.8 (2.1-6.9); NEUTROPHILS % 60.6 % (38.7-80.0); PLATELET COUNT 224 x10e3/uL (140-360); RED BLOOD COUNT 5.09 x10e6/uL (4.3-5.7); RED CELL DISTRIBUTION WIDTH 13.5 % (11.7-14.4)
[2023-04-10 12:04] LABS: ALBUMIN 4.6 g/dL (3.5-5.0); ALBUMIN/GLOBULIN RATIO 1.4 (0.8-2.0); ANION GAP 13.9 mmol/L (8-16); CALCIUM 9.7 mg/dL (8.4-10.2); CREATININE, SERUM 0.92 mg/dL (0.72-1.25); POTASSIUM 3.9 mmol/L (3.5-5.1)
== END 2023-04-10 13:43 | disposition home or self-care (01) ==
LOC: ER 11:21
DX: R07.89 Other chest pain (principal); I10 Essential (primary) hypertension; Z87.19 Personal history of other diseases of the digestive system
CPT/HCPCS: 36415; 71045; 80053; 83690; 83880; 84484; 85025; 93005; 99284